=== PATIENT | male | born 1985 | race Caucasian/White ===

== ENCOUNTER 2021-01-05 02:29 | Emergency (ER) | payer OTHER ==
[~2021-01-05] VITALS: Ht 170.2 cm; Wt 74.8 kg
[~2021-01-05 02:29] MED LIST: AZIT250 PO; Acetaminophen325 M1 PO; Bacid1 EACH PO; CLARITIN10 MG PO; DULERA 100 MCG/13 GM INH; FOLI1 PO; FURO40 PO; GEMF600 PO; MAGOXI400 PO; METO50 PO; Norco 5-325 Ta1 EACH PO; Omeprazole20 M1 PO; POTCHL20ER PO; PSYL5.85P PO; TRIHYD253B PO; VITAMIN B-1100 MG PO; ZOLP5 PO
== END 2021-01-05 03:34 | disposition home or self-care (01) ==
LOC: ER 02:29
DX: S62.306A Unspecified fracture of fifth metacarpal bone, right hand, initial encounter for closed fracture (principal); I10 Essential (primary) hypertension; F17.220 Nicotine dependence, chewing tobacco, uncomplicated; W10.9XXA Fall (on) (from) unspecified stairs and steps, initial encounter
CPT/HCPCS: 29125; 73130; 99283-25

== ENCOUNTER 2024-04-05 20:56 | Emergency (ER) | payer OTHER ==
[~2024-04-05] VITALS: Ht 172.7 cm; Wt 72.6 kg
[2024-04-05] MEDS ORDERED: Ondansetron HCl 2 MG / ML 2ML Vial IV PRN (21:25)
[2024-04-05 21:44] LABS: BASOPHILS ABSOLUTE AUTO 0.08 K/mm3 (0.00-0.23); BASOPHILS PERCENT AUTO 1 % (0-2); EOSINOPHILS ABSOLUTE AUTO 0.39 K/mm3 (0.00-0.68); EOSINOPHILS PERCENT AUTO 3 % (0-6); Hematocrit 37.3 % (37.0-53.0); Hemoglobin 12.9 g/dL (13.5-17.5); IMMATURE GRAN ABSOLUTE AUTO 0.07 K/mm3 (0.00-0.10); IMMATURE GRAN PERCENT AUTO 0 % (0-1); LYMPHOCYTES ABSOLUTE AUTO 3.31 K/mm3 (0.84-5.20); LYMPHOCYTES PERCENT AUTO 21 % (21-46); MONOCYTES ABSOLUTE AUTO 1.02 K/mm3 (0.16-1.47); MONOCYTES PERCENT AUTO 7 % (4-13); Mean Corpuscular HGB 31.9 pg (26.0-34.0); Mean Corpuscular HGB Conc 34.6 g/dL (31.5-36.5); Mean Corpuscular Volume 92 fL (80-100); Mean Platelet Volume 9.6 fL (9.1-12.4); NEUTROPHILS ABSOLUTE AUTO 10.93 K/mm3 (1.96-9.15); NEUTROPHILS PERCENT AUTO 69 % (41-73); Platelet Count 309 K/mm3 (150-400); RDW Coefficient Variation 12.3 % (11.7-14.2); RDW Standard Deviation 41.7 fL (35.1-46.3); Red Blood Cell Count 4.05 M/mm3 (4.30-5.90)
[2024-04-05 22:14] LABS: Albumin, Blood 3.8 g/dL (3.4-5.0); Albumin/Globulin Ratio 1.1 (0.8-1.8); Bilirubin, Total 0.2 mg/dL (0.1-1.0); Bun/Creatinine Ratio 9.8 (12.0-20.0); Calcium, Blood 9.7 mg/dL (8.5-10.1); Creatinine, Blood 0.82 mg/dL (0.60-1.20); Globulin, Blood 3.6 g/dL (2.2-4.0); Potassium, Blood 3.7 mmol/L (3.5-5.5); Total Protein, Blood 7.4 g/dL (6.4-8.2)
[2024-04-06] MEDS ORDERED: FentaNYL Citrate 50 MCG/ML 2 ML Injection IV ONE ×2 (01:00→01:35)
[2024-04-06] MEDS ORDERED: Lactated Ringer's 1,000 ML IV SCH (01:05)
[2024-04-06 02:00] VITALS: BP 135/96
[2024-04-06] MEDS ORDERED: ONDA4ODT MM (03:27)
== END 2024-04-06 03:44 | disposition home or self-care (01) ==
LOC: ER 20:56
PROVIDERS: Emergency Medicine
DX: K85.90 Acute pancreatitis without necrosis or infection, unspecified (principal); D72.829 Elevated white blood cell count, unspecified; I10 Essential (primary) hypertension; F43.10 Post-traumatic stress disorder, unspecified; F17.220 Nicotine dependence, chewing tobacco, uncomplicated
CPT/HCPCS: 76705; 80053; 83690; 85025; 96374; 96375; 96376; 99284-25; J2405; J3010; J7120

== ENCOUNTER 2024-11-29 18:23 | Emergency (ER) | payer OTHER ==
[~2024-11-29] VITALS: Ht 170.2 cm; Wt 68.0 kg
[~2024-11-29 18:23] MED LIST changes: +ONDA4ODT MM
[2024-11-29] MEDS ORDERED: Morphine Sulfate 4 MG/1 ML Injection IV ONE (18:40)
[2024-11-29] MEDS ORDERED: Lactated Ringer's 1,000 ML IV SCH (18:40)
[2024-11-29] MEDS ORDERED: Ondansetron HCl 2 MG / ML 2ML Vial IV ONE (18:40)
[2024-11-29 19:05] LABS: BASOPHILS ABSOLUTE AUTO 0.06 K/mm3 (0.00-0.23); BASOPHILS PERCENT AUTO 1 % (0-2); EOSINOPHILS ABSOLUTE AUTO 0.28 K/mm3 (0.00-0.68); EOSINOPHILS PERCENT AUTO 2 % (0-6); Hematocrit 42.7 % (37.0-53.0); IMMATURE GRAN ABSOLUTE AUTO 0.03 K/mm3 (0.00-0.10); IMMATURE GRAN PERCENT AUTO 0 % (0-1); LYMPHOCYTES PERCENT AUTO 26 % (21-46); MONOCYTES ABSOLUTE AUTO 0.85 K/mm3 (0.16-1.47); MONOCYTES PERCENT AUTO 7 % (4-13); Mean Corpuscular HGB 32.1 pg (26.0-34.0); Mean Corpuscular HGB Conc 35.1 g/dL (31.5-36.5); Mean Corpuscular Volume 91 fL (80-100); Mean Platelet Volume 9.2 fL (9.1-12.4); NEUTROPHILS ABSOLUTE AUTO 7.27 K/mm3 (1.96-9.15); NEUTROPHILS PERCENT AUTO 63 % (41-73); Platelet Count 344 K/mm3 (150-400); RDW Standard Deviation 40.3 fL (35.1-46.3); Red Blood Cell Count 4.68 M/mm3 (4.30-5.90); White Blood Cell Count 11.49 K/mm3 (4.00-11.30)
[2024-11-29 19:36] LABS: Albumin, Blood 3.9 g/dL (3.4-5.0); Albumin/Globulin Ratio 1.1 (0.8-1.8); Bilirubin, Total 0.3 mg/dL (0.1-1.0); Calcium, Blood 9.1 mg/dL (8.5-10.1); Creatinine, Blood 0.78 mg/dL (0.60-1.20); Globulin, Blood 3.5 g/dL (2.2-4.0); Potassium, Blood 3.5 mmol/L (3.5-5.5); Total Protein, Blood 7.4 g/dL (6.4-8.2)
[2024-11-29 20:10] LABS: Source, Urine Clean Catch
[2024-11-29 20:16] LABS: Appearance, Urine Clear (Clear); Bilirubin, Urine Neg (Neg); Blood, Urine Neg (Neg); Color, Urine Yellow (P-Yellow); Glucose Qualitative, Urine Neg (Neg); Ketones, Urine Neg (Neg); Leukocyte Esterase, Urine Neg (Neg); Nitrite, Urine Neg (Neg); Protein, Urine Neg (Neg); Urobilinogen, Urine NORM (Normal); pH, Urine 6.5 (5.0-8.0)
[2024-11-29 20:21] VITALS: BP 141/99
[2024-11-29] MEDS ORDERED: OXYC5 PO (21:05)
[2024-11-29] MEDS ORDERED: ONDA4ODT MM (21:05)
[2024-11-29] MEDS ORDERED: Morphine Sulfate 10 MG/ML 1MLSYR IV ONE (21:05)
== END 2024-11-29 22:09 | disposition home or self-care (01) ==
LOC: ER 18:23
PROVIDERS: Emergency Medicine
DX: K85.90 Acute pancreatitis without necrosis or infection, unspecified (principal); E86.0 Dehydration; D72.829 Elevated white blood cell count, unspecified; I10 Essential (primary) hypertension; E78.1 Pure hyperglyceridemia; F17.220 Nicotine dependence, chewing tobacco, uncomplicated; Z79.899 Other long term (current) drug therapy; Z59.89 Other problems related to housing and economic circumstances
CPT/HCPCS: 76705; 80053; 81003; 83605; 83690; 85025; 93005; 93010; 96361; 96374; 96375; 96376; 99284-25; J2270; J2405; J7120

== ENCOUNTER 2024-12-18 17:34 | Emergency (ER) | payer OTHER ==
[~2024-12-18] VITALS: Ht 170.2 cm; Wt 68.0 kg
[~2024-12-18 17:34] MED LIST changes: +OXYC5 PO
[2024-12-18 17:42] VITALS: BP 132/105
[2024-12-18 18:03] LABS: BASOPHILS ABSOLUTE AUTO 0.07 K/mm3 (0.00-0.23); BASOPHILS PERCENT AUTO 1 % (0-2); EOSINOPHILS ABSOLUTE AUTO 0.37 K/mm3 (0.00-0.68); EOSINOPHILS PERCENT AUTO 3 % (0-6); Hematocrit 43.6 % (37.0-53.0); Hemoglobin 15.1 g/dL (13.5-17.5); IMMATURE GRAN ABSOLUTE AUTO 0.03 K/mm3 (0.00-0.10); IMMATURE GRAN PERCENT AUTO 0 % (0-1); LYMPHOCYTES ABSOLUTE AUTO 3.73 K/mm3 (0.84-5.20); LYMPHOCYTES PERCENT AUTO 26 % (21-46); MONOCYTES ABSOLUTE AUTO 0.89 K/mm3 (0.16-1.47); MONOCYTES PERCENT AUTO 6 % (4-13); Mean Corpuscular HGB 31.7 pg (26.0-34.0); Mean Corpuscular HGB Conc 34.6 g/dL (31.5-36.5); Mean Corpuscular Volume 91 fL (80-100); Mean Platelet Volume 9.5 fL (9.1-12.4); NEUTROPHILS ABSOLUTE AUTO 9.31 K/mm3 (1.96-9.15); NEUTROPHILS PERCENT AUTO 65 % (41-73); Platelet Count 380 K/mm3 (150-400); RDW Coefficient Variation 12.1 % (11.7-14.2); RDW Standard Deviation 40.7 fL (35.1-46.3); Red Blood Cell Count 4.77 M/mm3 (4.30-5.90)
[2024-12-18 18:24] LABS: Albumin, Blood 4.3 g/dL (3.4-5.0); Albumin/Globulin Ratio 1.2 (0.8-1.8); Bilirubin, Total 0.3 mg/dL (0.1-1.0); Bun/Creatinine Ratio 11.6 (12.0-20.0); Calcium, Blood 9.9 mg/dL (8.5-10.1); Creatinine, Blood 0.95 mg/dL (0.60-1.20); Globulin, Blood 3.5 g/dL (2.2-4.0); Potassium, Blood 3.6 mmol/L (3.5-5.5); Total Protein, Blood 7.8 g/dL (6.4-8.2)
[2024-12-18] MEDS ORDERED: HYDROmorphone HCl/Pf 1MG SYR IV ONE ×2 (20:15→21:45)
[2024-12-18] MEDS ORDERED: Ondansetron HCl 2 MG / ML 2ML Vial IV ONE (20:50)
[2024-12-18] MEDS ORDERED: Mag Hydrox/AL Hydrox/Simeth 30 ML UDC PO ONE (21:20)
[2024-12-18] MEDS ORDERED: Lidocaine 2% Viscous Soln 15 ML UDC PO ONE (21:20)
[2024-12-18] MEDS ORDERED: RX Prepack 6 Tabs Oxycodone 5mg UD ONE (22:00)
== END 2024-12-18 22:18 | disposition home or self-care (01) ==
LOC: ER 17:34
PROVIDERS: Student in an Organized Health Care Education/Training Program
DX: R10.13 Epigastric pain (principal); K86.1 Other chronic pancreatitis; K86.3 Pseudocyst of pancreas; K42.9 Umbilical hernia without obstruction or gangrene; I10 Essential (primary) hypertension; F17.220 Nicotine dependence, chewing tobacco, uncomplicated
CPT/HCPCS: 74177; 80053; 83690; 84484; 85025; 96374-59; 96375; 96376; 99284-25; A9270; J1171; J2405; Q9967

== ENCOUNTER 2025-03-09 06:21 | Inpatient (IN) | payer OTHER ==
[~2025-03-09] VITALS: Ht 170.2 cm; Wt 58.7 kg
[2025-03-09] MEDS ORDERED: Prochlorperazine Edisylate 10 mg Vial IV ONE (06:50)
[2025-03-09] MEDS ORDERED: HYDROmorphone HCl/Pf 1MG SYR IV ONE ×2 (06:55→09:20)
[2025-03-09] MEDS ORDERED: D5W-NS 500 ML IV SCH (06:55)
[2025-03-09 07:04] LABS: BASOPHILS ABSOLUTE AUTO 0.05 K/mm3 (0.00-0.23); BASOPHILS PERCENT AUTO 0 % (0-2); EOSINOPHILS ABSOLUTE AUTO 0.14 K/mm3 (0.00-0.68); EOSINOPHILS PERCENT AUTO 1 % (0-6); Hematocrit 43.7 % (37.0-53.0); Hemoglobin 15.3 g/dL (13.5-17.5); IMMATURE GRAN ABSOLUTE AUTO 0.05 K/mm3 (0.00-0.10); IMMATURE GRAN PERCENT AUTO 0 % (0-1); LYMPHOCYTES ABSOLUTE AUTO 1.93 K/mm3 (0.84-5.20); LYMPHOCYTES PERCENT AUTO 15 % (21-46); MONOCYTES ABSOLUTE AUTO 0.71 K/mm3 (0.16-1.47); MONOCYTES PERCENT AUTO 6 % (4-13); Mean Corpuscular HGB Conc 35.0 g/dL (31.5-36.5); Mean Corpuscular Volume 91 fL (80-100); NEUTROPHILS ABSOLUTE AUTO 9.90 K/mm3 (1.96-9.15); NEUTROPHILS PERCENT AUTO 77 % (41-73); NRBC ABSOLUTE 0.00 K/mm3 (0.00-0.02); NRBC Auto 0.0 /100 WBC (0.0-0.2); Platelet Count 399 K/mm3 (150-400); RDW Coefficient Variation 13.2 % (11.7-14.2); RDW Standard Deviation 44.6 fL (35.1-46.3)
[2025-03-09 07:23] LABS: Alanine Aminotransfer (ALT/SGP 41.0 U/L (12-78); Albumin, Blood 4.1 g/dL (3.4-5.0); Albumin/Globulin Ratio 1.3 (0.8-1.8); Anion Gap 11.0 mmol/L (3-11); Aspartate Aminotrans (AST/SGOT 33.0 U/L (12-37); Bilirubin, Direct 0.1 mg/dL (0.0-0.3); Bilirubin, Indirect 0.4 mg/dL (0.1-0.7); Bilirubin, Total 0.5 mg/dL (0.1-1.0); Blood Urea Nitrogen 15.0 mg/dL (8-24); CO2, Blood 28.0 mmol/L (21-32); Calcium, Blood 8.8 mg/dL (8.5-10.1); Chloride, Blood 99.0 mmol/L (98-108); Creatinine, Blood 0.8 mg/dL (0.60-1.20); Globulin, Blood 3.1 g/dL (2.2-4.0); Glucose, Blood 123.0 mg/dL (70-99); Potassium, Blood 3.0 mmol/L (3.5-5.5); Sodium, Blood 135.0 mmol/L (136-145); Total Protein, Blood 7.2 g/dL (6.4-8.2)
[2025-03-09 08:52] LABS: Source, Urine Clean Catch
[2025-03-09 08:56] LABS: Bilirubin, Urine Neg (Neg); Color, Urine Yellow (P-Yellow); Glucose Qualitative, Urine Neg (Neg); Ketones, Urine 1+ (Neg); Leukocyte Esterase, Urine Neg (Neg); Protein, Urine 2+ (Neg); Specific Gravity, Urine 1.010 (1.003-1.022); Urobilinogen, Urine NORM (Normal)
[2025-03-09] MEDS ORDERED: Enoxaparin 60 MG/0.6 ML SYR SC SCH (09:00)
[2025-03-09 09:02] LABS: Red Blood Cells, Urine Not Seen /hpf (0-2); White Blood Cells, Urine Not Seen /hpf (0-5)
[2025-03-09] MEDS ORDERED: Potassium Chl 20MEQ/Water100ML 100 ML IV STA (10:24)
[2025-03-09] MEDS ORDERED: HYDROmorphone HCl/Pf 1MG SYR IV PRN (10:25)
[2025-03-09] MEDS ORDERED: Ondansetron HCl 2 MG / ML 2ML Vial IV PRN (10:25)
[2025-03-09] MEDS ORDERED: NS 1,000 ML IV ONE (10:34)
[2025-03-09] MEDS ORDERED: Amylase/Lipase/Protease DR Cap 12,000 PO SCH (12:30)
[2025-03-09] MEDS ORDERED: Prochlorperazine Edisylate 10 mg Vial IV SCH (16:00)
--- NOTE | 2025-03-09 17:15 | NUR ---
PT ADMITTED TO ROOM 358 FROM ER.
[2025-03-09 17:19] VITALS: BP 110/73
[2025-03-09 19:12] VITALS: BP 120/82
[2025-03-10 01:55] VITALS: BP 99/66
--- NOTE | 2025-03-10 04:01 | NUR ---
SHIFT SUMMARY NOC PT A/O X 4.PLEASANT AND COOPERATIVE WITH CARE VSS. NO ACUTE CHANGES TO REPORT. PT PAIN AND INTERMITTENT NAUSUA BEING MANAGEG PER EMAR. LR INFUSING @ 150 ML/HR. PT TOLERATING CLEAR LIQUID DIET. PT TOOK SHOWER AT BEGINNING OF SHIFT. PT CURRENTLY RESTING WITH BED IN LOWEST POSITION, AND CALL LIGHT WITHIN REACH.
[2025-03-10 05:29] LABS: Magnesium, Blood 2.2 mg/dL (1.6-2.4)
[2025-03-10 05:32] LABS: Alanine Aminotransfer (ALT/SGP 27.0 U/L (12-78); Albumin, Blood 2.8 g/dL (3.4-5.0); Albumin/Globulin Ratio 1.2 (0.8-1.8); Anion Gap 6.0 mmol/L (3-11); Aspartate Aminotrans (AST/SGOT 23.0 U/L (12-37); Bilirubin, Total 0.4 mg/dL (0.1-1.0); Blood Urea Nitrogen 7.0 mg/dL (8-24); CO2, Blood 29.0 mmol/L (21-32); Calcium, Blood 8.1 mg/dL (8.5-10.1); Chloride, Blood 109.0 mmol/L (98-108); Creatinine, Blood 0.68 mg/dL (0.60-1.20); Globulin, Blood 2.4 g/dL (2.2-4.0); Glucose, Blood 83.0 mg/dL (70-99); Potassium, Blood 4.0 mmol/L (3.5-5.5); Sodium, Blood 140.0 mmol/L (136-145)
[2025-03-10 05:36] LABS: Total Protein, Blood 5.2 g/dL (6.4-8.2)
[2025-03-10 07:48] VITALS: BP 90/61
[2025-03-10 14:59] VITALS: BP 109/69
--- NOTE | 2025-03-10 16:46 | NUR ---
SHIFT SUMMARY: PATIENT ABLE TO ADVANCE DIET TOLERATED TODAY. WILL ATTEMPT A REGULAR DIET FOR DINNER; TOLERATED FULL LIQUID FOR LUNCH. MEDICATING FOR NAUSEA AND PAIN NEEDED. PATIENT TOLERATING ORAL MEDICATIONS. LR D/C'D. PATIENT IN BED, ALERT, NO SIGNS OR SYMPTOMS OF DISTRESS, PLAN OF CARE ONGOING. PLAN IS TO D/C 03/11/25.
[2025-03-10 20:03] VITALS: BP 112/78
[2025-03-11 04:35] VITALS: BP 122/81
--- NOTE | 2025-03-11 05:19 | NUR ---
PT A&O X4, VS WNL, UOP WNL, PT MEDICATED FOR PAIN WITH PO DILAUDID, AND REMAINS ON ROUTINE ANTINAUSEA MEDS. INDEPENDENT WITH MOBILITY AND ADL'S. PLAN TO D/C HOME WITH REFERAL TO [facility].
[2025-03-11 07:21] VITALS: BP 115/84
[2025-03-11 08:44] VITALS: BP 144/91
[2025-03-11] MEDS ORDERED: DiphenhydrAMINE HCl 50 MG/ML 1ML Vial ONE (08:46)
[2025-03-11] MEDS ORDERED: LORazepam 2 MG/ML 1ML Injection IV ONE (08:50)
[2025-03-11] MEDS ORDERED: DiphenhydrAMINE HCl 50 MG/ML 1ML Vial IV ONE (08:50)
[2025-03-11] MEDS ORDERED: LORazepam 2 MG/ML 1ML Injection ONE (08:51)
[2025-03-11] MEDS ORDERED: DiphenhydrAMINE HCl 50 MG/ML 1ML Vial IV PRN (08:55)
--- NOTE | 2025-03-11 09:11 | NUR ---
RAPID RESPONSE CALLED ON PATIENT DUE TO SUDDEN TONGUE SWELLING AND PATIENT REPORTING; SWELLING, CRAMPING, DIFFICULTY BREATHING, PANIC/ANXIETY/PTSD. CHARGE, NURSING SUP, RAPID RESPONSE RN, PRIMARY RN, AND DR. FRYE AT BEDSIDE. PREFORMED RAPID RESPONSE, ORDERS PLACED, MEDICATIONS GIVEN PER EMAR. PATIENT RECOVERED WITH TREATMENT. NO LONGER WEARING OXYGEN AT THIS TIME, CONTINUE BI OX IN PLACE, PATIENT REPORTS FEELING BETTER, TONGUE SWELLING RESOLVED, PATIENT DROWSY FROM MEDICATIONS. AT BEDSIDE. ADVISED TO CALL IMMEDIATELY WITH ANY SYMPTOMS. ORDERS PLACED FOR PATIENT IF REACTION REOCCURS.
[2025-03-11] MEDS ORDERED: CREON DR 12,001 EACH PO (12:33)
[2025-03-11] MEDS ORDERED: XARELTO20 MG PO (12:33)
--- NOTE | 2025-03-11 12:50 | NUR ---
DISCHARGE NOTE: WENT OVER DISCHARGE WITH THE PATIENT AND HIS . PATIENT'S IV WAS REMOVED, HE GOT DRESSED AND COLLECTED BELONGINGS. PATIENT WALKED OUT OF UNIT WITH . PATIENT FELT GOOD AND WAS READY TO LEAVE. NO SIGNS OR SYMPTOMS OF DISTRESS WITH DISCHARGE.
== END 2025-03-11 12:50 | disposition home or self-care (01) | DRG 439 ==
LOC: ER 06:21 → ERHOLD 10:23 → MEDS 10:23
PROVIDERS: Student in an Organized Health Care Education/Training Program; ADMIT Internal Medicine
DX: K85.20 Alcohol induced acute pancreatitis without necrosis or infection (principal); K86.3 Pseudocyst of pancreas; D73.5 Infarction of spleen; F17.220 Nicotine dependence, chewing tobacco, uncomplicated; I10 Essential (primary) hypertension; E87.6 Hypokalemia; F43.10 Post-traumatic stress disorder, unspecified; E78.1 Pure hyperglyceridemia; F10.21 Alcohol dependence, in remission; K86.0 Alcohol-induced chronic pancreatitis; Z88.8 Allergy status to other drugs, medicaments and biological substances; Z87.820 Personal history of traumatic brain injury; Z89.421 Acquired absence of other right toe(s)
CPT/HCPCS: 36415; 74177; 80048; 80053; 80076; 81001; 83605; 83690; 83735; 85025; 93005; 93010; 94760; 94762; 96374-59; 96375; 96376; 99285-25; A9270; J0780; J1171; J1200; J2060; J3480; J7030; J7042; J7120; Q9967

== ENCOUNTER 2025-03-14 17:55 | Inpatient (IN) | payer OTHER ==
[~2025-03-14] VITALS: Ht 170.2 cm; Wt 59.0 kg
[~2025-03-14 17:55] MED LIST changes: +CREON DR 12,001 EACH PO; +XARELTO20 MG PO
[2025-03-14] MEDS ORDERED: NS 1,000 ML IV SCH ×2 (18:10→21:50)
[2025-03-14] MEDS ORDERED: HYDROmorphone HCl/Pf 1MG SYR IV ONE ×2 (18:10→23:10)
[2025-03-14] MEDS ORDERED: Ondansetron HCl 2 MG / ML 2ML Vial IV ONE ×2 (18:15→19:40)
[2025-03-14 18:37] LABS: BASOPHILS ABSOLUTE AUTO 0.04 K/mm3 (0.00-0.23); BASOPHILS PERCENT AUTO 0 % (0-2); EOSINOPHILS ABSOLUTE AUTO 0.07 K/mm3 (0.00-0.68); EOSINOPHILS PERCENT AUTO 1 % (0-6); Hematocrit 38.6 % (37.0-53.0); Hemoglobin 13.3 g/dL (13.5-17.5); IMMATURE GRAN ABSOLUTE AUTO 0.04 K/mm3 (0.00-0.10); IMMATURE GRAN PERCENT AUTO 0 % (0-1); LYMPHOCYTES ABSOLUTE AUTO 1.75 K/mm3 (0.84-5.20); LYMPHOCYTES PERCENT AUTO 16 % (21-46); MONOCYTES ABSOLUTE AUTO 0.78 K/mm3 (0.16-1.47); MONOCYTES PERCENT AUTO 7 % (4-13); Mean Corpuscular HGB Conc 34.5 g/dL (31.5-36.5); Mean Corpuscular Volume 93 fL (80-100); NEUTROPHILS ABSOLUTE AUTO 7.99 K/mm3 (1.96-9.15); NEUTROPHILS PERCENT AUTO 75 % (41-73); NRBC ABSOLUTE 0.00 K/mm3 (0.00-0.02); NRBC Auto 0.0 /100 WBC (0.0-0.2); Platelet Count 347 K/mm3 (150-400); RDW Coefficient Variation 13.5 % (11.7-14.2); RDW Standard Deviation 46.5 fL (35.1-46.3)
[2025-03-14 18:53] LABS: Alanine Aminotransfer (ALT/SGP 50.0 U/L (12-78); Albumin, Blood 4.1 g/dL (3.4-5.0); Albumin/Globulin Ratio 1.3 (0.8-1.8); Anion Gap 9.0 mmol/L (3-11); Aspartate Aminotrans (AST/SGOT 32.0 U/L (12-37); Bilirubin, Total 0.5 mg/dL (0.1-1.0); Blood Urea Nitrogen 19.0 mg/dL (8-24); CO2, Blood 36.0 mmol/L (21-32); Calcium, Blood 9.4 mg/dL (8.5-10.1); Chloride, Blood 99.0 mmol/L (98-108); Creatinine, Blood 0.89 mg/dL (0.60-1.20); Globulin, Blood 3.2 g/dL (2.2-4.0); Glucose, Blood 131.0 mg/dL (70-99); Potassium, Blood 3.1 mmol/L (3.5-5.5); Sodium, Blood 141.0 mmol/L (136-145); Total Protein, Blood 7.3 g/dL (6.4-8.2)
[2025-03-14] MEDS ORDERED: Potassium Chl 20MEQ/Water100ML 100 ML IV SCH (21:50)
[2025-03-14] MEDS ORDERED: FentaNYL Citrate 50 MCG/ML 2 ML Injection IV PRN (23:30)
[2025-03-14] MEDS ORDERED: Ondansetron HCl 2 MG / ML 2ML Vial IV PRN (23:30)
[2025-03-14] MEDS ORDERED: NS 1,000 ML IV ONE (23:30)
[2025-03-14] MEDS ORDERED: HYDROmorphone HCl/Pf 1MG SYR IV PRN (23:30)
--- NOTE | 2025-03-14 23:41 | NUR ---
TOOK REPORT FROM ED FEDERICA HOANG @ [id number].
[2025-03-14 23:53] LABS: Magnesium, Blood 2.3 mg/dL (1.6-2.4); Phosphorus, Blood 4.8 mg/dL (2.5-4.9)
[2025-03-14 23:58] VITALS: BP 105/75
[2025-03-15] MEDS ORDERED: Ondansetron HCl 2 MG / ML 2ML Vial IV ONE (00:30)
[2025-03-15 01:36] LABS: BASOPHILS ABSOLUTE AUTO 0.05 K/mm3 (0.00-0.23); BASOPHILS PERCENT AUTO 0 % (0-2); EOSINOPHILS ABSOLUTE AUTO 0.12 K/mm3 (0.00-0.68); EOSINOPHILS PERCENT AUTO 1 % (0-6); Hematocrit 32.4 % (37.0-53.0); Hemoglobin 11.1 g/dL (13.5-17.5); IMMATURE GRAN ABSOLUTE AUTO 0.09 K/mm3 (0.00-0.10); IMMATURE GRAN PERCENT AUTO 1 % (0-1); LYMPHOCYTES ABSOLUTE AUTO 3.78 K/mm3 (0.84-5.20); LYMPHOCYTES PERCENT AUTO 31 % (21-46); MONOCYTES ABSOLUTE AUTO 1.15 K/mm3 (0.16-1.47); MONOCYTES PERCENT AUTO 9 % (4-13); Mean Corpuscular HGB Conc 34.3 g/dL (31.5-36.5); Mean Corpuscular Volume 95 fL (80-100); NEUTROPHILS ABSOLUTE AUTO 7.08 K/mm3 (1.96-9.15); NEUTROPHILS PERCENT AUTO 58 % (41-73); NRBC ABSOLUTE 0.00 K/mm3 (0.00-0.02); NRBC Auto 0.0 /100 WBC (0.0-0.2); Platelet Count 315 K/mm3 (150-400); RDW Coefficient Variation 13.7 % (11.7-14.2); RDW Standard Deviation 48.0 fL (35.1-46.3)
[2025-03-15 01:52] LABS: Alanine Aminotransfer (ALT/SGP 38 U/L (12-78); Albumin, Blood 3.4 g/dL (3.4-5.0); Albumin/Globulin Ratio 1.4 (0.8-1.8); Anion Gap 11 mmol/L (3-11); Aspartate Aminotrans (AST/SGOT 25 U/L (12-37); Bilirubin, Total 0.4 mg/dL (0.1-1.0); Blood Urea Nitrogen 17 mg/dL (8-24); CO2, Blood 30 mmol/L (21-32); Calcium, Blood 8.1 mg/dL (8.5-10.1); Chloride, Blood 101 mmol/L (98-108); Creatinine, Blood 0.74 mg/dL (0.60-1.20); Globulin, Blood 2.5 g/dL (2.2-4.0); Glucose, Blood 95 mg/dL (70-99); Magnesium, Blood 2.0 mg/dL (1.6-2.4); Phosphorus, Blood 3.8 mg/dL (2.5-4.9); Potassium, Blood 3.3 mmol/L (3.5-5.5); Sodium, Blood 139 mmol/L (136-145); Total Protein, Blood 5.9 g/dL (6.4-8.2)
[2025-03-15 02:26] VITALS: BP 98/67
[2025-03-15] MEDS ORDERED: HYDROmorphone HCl/Pf 1MG SYR IV PRN (02:40)
[2025-03-15 03:16] LABS: CHOL/HDL RATIO 3.4; Cholesterol 104 mg/dL (50-200); HDL Cholesterol 31 mg/dL (>39); LDL/HDL RATIO 1.9; Low Density Lipoprotein Chol 59 mg/dL (0-110); Triglycerides 68 mg/dL (30-160); Very Low Density Lipoprot Chol 13 mg/dL (6-32)
--- NOTE | 2025-03-15 04:56 | NUR ---
SHIFT SUMMARY NOC PT A/O X 4. PLEASANT AND COOPERATIVE WITH CARE. BP SOFT. IVF CHANGED FROM NS @ 100 ML/HR TO LR @ 200 ML/HR, DUE TO NPO STATUS AND TO KEEP BP UP BECAUSE PT RECEIVING DILAUDID IV FOR PAIN. PT NAUSEA BEING MANAGED PER EMAR. PT ON TELE SINUS RHYTHM IN 60'S. PT POTASSIUM 3.3 AFTER RECEIVING 40 MEQ IV KCL, ADDITIONAL 40 MEQ ORDERED AND IS INFUSING. PT DISCHARGED FROM HOSPITAL ON THURSDAY, BUT WAS UNABLE TO GET PRESCRIPTION FOR CREON FILLED AT THE [facility] DUE TO LABOR DAY WEEKEND. PT CURRENTLY RESTING WITH BED IN LOWEST POSITION, AND CALL LIGHT WITHIN REACH.
[2025-03-15 07:21] VITALS: BP 101/61
[2025-03-15 09:38] LABS: Anion Gap 6.0 mmol/L (3-11); Blood Urea Nitrogen 14.0 mg/dL (8-24); CO2, Blood 30.0 mmol/L (21-32); Calcium, Blood 8.0 mg/dL (8.5-10.1); Chloride, Blood 106.0 mmol/L (98-108); Creatinine, Blood 0.76 mg/dL (0.60-1.20); Glucose, Blood 79.0 mg/dL (70-99); Magnesium, Blood 2.1 mg/dL (1.6-2.4); Phosphorus, Blood 3.0 mg/dL (2.5-4.9); Potassium, Blood 3.8 mmol/L (3.5-5.5); Sodium, Blood 138.0 mmol/L (136-145)
[2025-03-15] MEDS ORDERED: Amylase/Lipase/Protease DR Cap 12,000 PO SCH (10:08)
[2025-03-15] MEDS ORDERED: Metoclopramide HCl 5MG / ML 2ML Vial IV PRN (10:45)
[2025-03-15 16:51] VITALS: BP 102/76
--- NOTE | 2025-03-15 18:47 | NUR ---
SUMMARY- PT A/O X4. INDEPENDANT IN ROOM. STAYED IN BED MOST OF THE DAY RELATED TO PAIN AND UNCOMFORTABLE ABD. TIGHT AND PAINFUL ENTIRE UPPER ABD. MEDICATED ROUTINELY APPROX Q2 WITH DILAUDID 1MG, ALTERNATED ZOFRAN WITH REGLAN. STARTED ON CLEARS, ATTEMPTED TO ADVANCE, TOOK A FEW BITES OF RICE AND CHICKEN AND IMMEDIATE NAUSEA, STOPPED SOLIDS. CONT T/O THE DAY TO TAKE IN SIPS OF CLEARS. AGAIN TRIED RICE AND CHICKEN AT DINNER AND COULD NOT TOLERATE. PT HAS LR RUNNING AT 200ML/HR, STATED HE HAD NO VOID ALL DAY, ATTEMPTED AT 1830 AND VOIDED 75ML MED CONCENTRATED URINE, BLADDER SCAN POST VOID WAS 9ML. WILL REPORT ALL TO NOC RN
[2025-03-15 20:37] VITALS: BP 111/68
[2025-03-16 04:22] VITALS: BP 111/82
--- NOTE | 2025-03-16 05:43 | NUR ---
SHIFT SUMMARY: Pt is admitted for acute pancreatitis and is a full code. Is alert able to make needs known. ADLs have been IND. pain has been managed with PRN medications. Stated he has nausea and was given PRN medications to help. Telly noted sinus carroll 40s to 60s through shift. With no events.
[2025-03-16 06:30] LABS: BASOPHILS ABSOLUTE AUTO 0.04 K/mm3 (0.00-0.23); BASOPHILS PERCENT AUTO 1 % (0-2); EOSINOPHILS ABSOLUTE AUTO 0.17 K/mm3 (0.00-0.68); EOSINOPHILS PERCENT AUTO 2 % (0-6); Hematocrit 32.9 % (37.0-53.0); Hemoglobin 11.0 g/dL (13.5-17.5); IMMATURE GRAN ABSOLUTE AUTO 0.03 K/mm3 (0.00-0.10); IMMATURE GRAN PERCENT AUTO 0 % (0-1); LYMPHOCYTES ABSOLUTE AUTO 1.98 K/mm3 (0.84-5.20); LYMPHOCYTES PERCENT AUTO 24 % (21-46); MONOCYTES ABSOLUTE AUTO 0.54 K/mm3 (0.16-1.47); MONOCYTES PERCENT AUTO 7 % (4-13); Mean Corpuscular HGB Conc 33.4 g/dL (31.5-36.5); Mean Corpuscular Volume 98 fL (80-100); NEUTROPHILS ABSOLUTE AUTO 5.44 K/mm3 (1.96-9.15); NEUTROPHILS PERCENT AUTO 66 % (41-73); NRBC ABSOLUTE 0.00 K/mm3 (0.00-0.02); NRBC Auto 0.0 /100 WBC (0.0-0.2); Platelet Count 234 K/mm3 (150-400); RDW Coefficient Variation 13.3 % (11.7-14.2); RDW Standard Deviation 48.2 fL (35.1-46.3)
[2025-03-16 06:58] LABS: Anion Gap 6.0 mmol/L (3-11); Blood Urea Nitrogen 8.0 mg/dL (8-24); CO2, Blood 27.0 mmol/L (21-32); Calcium, Blood 7.8 mg/dL (8.5-10.1); Chloride, Blood 108.0 mmol/L (98-108); Creatinine, Blood 0.71 mg/dL (0.60-1.20); Glucose, Blood 89.0 mg/dL (70-99); Potassium, Blood 4.1 mmol/L (3.5-5.5); Sodium, Blood 137.0 mmol/L (136-145)
[2025-03-16 07:49] VITALS: BP 111/82
[2025-03-16 11:37] VITALS: BP 120/83
[2025-03-16] MEDS ORDERED: Ondansetron HCl 2 MG / ML 2ML Vial IV PRN (12:40)
[2025-03-16 16:08] VITALS: BP 110/71
--- NOTE | 2025-03-16 18:10 | NUR ---
SHIFT SUMMARY PATIENT A/OX4, ABLE TO MAKE NEEDS KNOWN. PLEASANT AND COOOPERATIVE WITH CARE. COMPLAINING OF PAIN TO UPPER ABDOMEN 6-9/10 THROUGHOUT THE SHIFT. PRN DILAUDID ADMINISTERED PER MAR. PATIENT ALSO COMPLAINING OF NAUSEA, PRN REGLAN AND ZOFRAN ADMINISTERED THROUGHOUT SHIFT, MD NOTIFIED THIS AFTERNOON OF CONTINUED NAUSEA DESPITE MEDICATION REGIMEN FOR NAUSEA AND PR4N SOFRAN INCREASED TO Q4 HOURS. TLEMETRY IN PLACE, SINUS ABDOULAYE, NO EVENTS NOTED, QTC 0.34 PER TELEMETRY.PATIENT WITH REGULAR DIET, BUT NOT [id number] INTAKE. GIVEN CLEAR LIQUID FLUIDS/FOOD AND ALSO DID NOT TOLERATE WELL. ONE EPISODE OF EMESIS THIS EVENING AFTER DRINKING ENSURE CLEAR. HARDSCRIPT PRESCRIPTIONS GIVEN TO PATIENT'S SPOUSE, ELSY, THIS MORNING TO ENSURE [facility] AB[facility] TO PROVID[facility] WITH [facility]ICATIONS. [facility] CALLED TO [facility]M ORDERS. PATIENT'S SPOUSE AND FRIEND AT BEDISDE INTERMITTENTLY THROUGHOUT SHIFT. PATIENT'S SPOUSE STATES THAT [facility] TO [facility]. NO OTHER CONCERNS, WILL CONTINUE TO MONITOR.
[2025-03-16 19:13] VITALS: BP 127/82
[2025-03-16 23:44] VITALS: BP 114/78
[2025-03-17 04:56] VITALS: BP 115/79
[2025-03-17 05:34] LABS: BASOPHILS ABSOLUTE AUTO 0.03 K/mm3 (0.00-0.23); BASOPHILS PERCENT AUTO 0 % (0-2); EOSINOPHILS ABSOLUTE AUTO 0.18 K/mm3 (0.00-0.68); EOSINOPHILS PERCENT AUTO 2 % (0-6); Hematocrit 32.7 % (37.0-53.0); Hemoglobin 11.0 g/dL (13.5-17.5); IMMATURE GRAN ABSOLUTE AUTO 0.03 K/mm3 (0.00-0.10); IMMATURE GRAN PERCENT AUTO 0 % (0-1); LYMPHOCYTES ABSOLUTE AUTO 2.36 K/mm3 (0.84-5.20); LYMPHOCYTES PERCENT AUTO 32 % (21-46); MONOCYTES ABSOLUTE AUTO 0.70 K/mm3 (0.16-1.47); MONOCYTES PERCENT AUTO 9 % (4-13); Mean Corpuscular HGB Conc 33.6 g/dL (31.5-36.5); Mean Corpuscular Volume 95 fL (80-100); NEUTROPHILS ABSOLUTE AUTO 4.18 K/mm3 (1.96-9.15); NEUTROPHILS PERCENT AUTO 56 % (41-73); NRBC ABSOLUTE 0.00 K/mm3 (0.00-0.02); NRBC Auto 0.0 /100 WBC (0.0-0.2); Platelet Count 238 K/mm3 (150-400); RDW Coefficient Variation 13.1 % (11.7-14.2); RDW Standard Deviation 45.2 fL (35.1-46.3)
--- NOTE | 2025-03-17 06:03 | NUR ---
SHIFT SUMMARY: Pt is admitted for acute pancreatitis and is a full code. Is alert able to make needs known. ADLs have been IND. pain has been managed with PRN medications. Stated he has nausea and was given PRN medications to help. Telly noted sinus carroll 40s to 60s through shift. With no events. Had emesis x1 that was out 300ml and clear. PRN antiemetics have been given about every 4h due to nausea. LR at 200 has been running into left forearm IV. dressing CDI.
[2025-03-17 06:05] LABS: Anion Gap 5.0 mmol/L (3-11); Blood Urea Nitrogen 4.0 mg/dL (8-24); CO2, Blood 32.0 mmol/L (21-32); Calcium, Blood 7.8 mg/dL (8.5-10.1); Chloride, Blood 105.0 mmol/L (98-108); Creatinine, Blood 0.73 mg/dL (0.60-1.20); Glucose, Blood 82.0 mg/dL (70-99); Potassium, Blood 3.6 mmol/L (3.5-5.5); Sodium, Blood 138.0 mmol/L (136-145)
[2025-03-17 07:26] VITALS: BP 126/83
[2025-03-17] MEDS ORDERED: Amylase/Lipase/Protease DR Cap 12,000 PO SCH (12:30)
[2025-03-17 15:25] VITALS: BP 135/85
--- NOTE | 2025-03-17 18:10 | NUR ---
SHIFT SUMMARY PATIENT A/OX4, ABLE TO MAKE NEEDS KNOWN. PLEASANT AND COOPERATIVE WITH CARE. INDEPENDENT IN ROOM. IV FLUIDS RUNNING PER SEP. IV PAIN MEDICATIONS AND NAUSEA MEDICATION TRANSITIONED TO PO THIS SHIFT AND PATIENT HAS TOLERATED WELL. ALSO HAD ONE TIME ORDER OF ATIVAN TO RELIEVE NAUSEA. HE ALSO HAS INCREASED APPETITE AND INTAKE COMPARED TO YESTERDAY. PATIENT'S SPOUSE AT BEDSIDE INTERMITTENTLY THROUGHOUT THE SHIFT. PATIENT PROVIDED WITH HARDSCRIPTS FOR PO DILAUDID AND ZOFRAN IN ORDER FOR THE [facility] TODAY PRIOR TO ANTICIPATED DISCHARGE TOMORROW. NO OTHER CONCERNS AT THIS TIME, WILL CONTINUE TO MONITOR.
[2025-03-17 20:13] VITALS: BP 133/85
[2025-03-17 20:14] VITALS: BP 133/85
[2025-03-17 23:41] VITALS: BP 145/92
[2025-03-18 04:30] VITALS: BP 135/87
--- NOTE | 2025-03-18 06:33 | NUR ---
NO ACUTE CHANGES DURING SHIFT. PATIENT ALERT AND ORIENTED X4, ABLE TO MAKE NEEDS KNOWN. PATIENT IS UP INDEPENDENTLY IN THE ROOM AND ABLE TO TURN SELF IN BED. PATIEN IS ON LR AT 200 ML/H. PO DILAUDID GIVEN FOR PAIN AND ZOFRAN AND REGLAN GIVEN FOR NAUSEA. PATIENT IS ON TELE-RUNNING NSR/SB. BED IS IN LOW POSITION WITH WHEELS LOCKED. CALL LIGHT WITHIN REACH.
[2025-03-18 06:35] LABS: BASOPHILS ABSOLUTE AUTO 0.05 K/mm3 (0.00-0.23); BASOPHILS PERCENT AUTO 1 % (0-2); EOSINOPHILS ABSOLUTE AUTO 0.21 K/mm3 (0.00-0.68); EOSINOPHILS PERCENT AUTO 3 % (0-6); Hematocrit 34.9 % (37.0-53.0); Hemoglobin 11.8 g/dL (13.5-17.5); IMMATURE GRAN ABSOLUTE AUTO 0.02 K/mm3 (0.00-0.10); IMMATURE GRAN PERCENT AUTO 0 % (0-1); LYMPHOCYTES ABSOLUTE AUTO 2.04 K/mm3 (0.84-5.20); LYMPHOCYTES PERCENT AUTO 27 % (21-46); MONOCYTES ABSOLUTE AUTO 0.51 K/mm3 (0.16-1.47); MONOCYTES PERCENT AUTO 7 % (4-13); Mean Corpuscular HGB Conc 33.8 g/dL (31.5-36.5); Mean Corpuscular Volume 94 fL (80-100); NEUTROPHILS ABSOLUTE AUTO 4.80 K/mm3 (1.96-9.15); NEUTROPHILS PERCENT AUTO 63 % (41-73); NRBC ABSOLUTE 0.00 K/mm3 (0.00-0.02); NRBC Auto 0.0 /100 WBC (0.0-0.2); Platelet Count 244 K/mm3 (150-400); RDW Coefficient Variation 12.7 % (11.7-14.2); RDW Standard Deviation 44.1 fL (35.1-46.3)
[2025-03-18 07:04] LABS: Anion Gap 7.0 mmol/L (3-11); Blood Urea Nitrogen 6.0 mg/dL (8-24); CO2, Blood 29.0 mmol/L (21-32); Calcium, Blood 8.2 mg/dL (8.5-10.1); Chloride, Blood 105.0 mmol/L (98-108); Creatinine, Blood 0.8 mg/dL (0.60-1.20); Glucose, Blood 98.0 mg/dL (70-99); Potassium, Blood 3.8 mmol/L (3.5-5.5); Sodium, Blood 137.0 mmol/L (136-145)
[2025-03-18 07:31] VITALS: BP 114/86
--- NOTE | 2025-03-18 11:00 | NUR ---
NOTE ROUNDED ON PT THIS AM. SAID "D/C IV REGLAN AND IV FLUIDS." THIS RN SALINE LOCKED IV. PT ON TELE. REPORTED "WILL LIKELY DISCHARGE. PT REPORTED "HAVN'T FELT THIS BETTER IN WEEKS." PT REPORTS "STILL HAVING ABD PAIN AND NAUSEA BUT IMPROVED." PUT IN DISHCHARGE ORDERS. BEHAVIOR ANALYST REPORTED "WORKING ON DISCHARGE PAPERWORK."
--- NOTE | 2025-03-18 11:01 | NUR ---
DISCHARGE MED REC REVISION NOTE. THIS NURSE, TO WORK ON DISCHARGE PAPERWORK, WHEN PT STATED THAT HE DIDNT HAVE ENOUGH CREON TO [facility]ST UNTIL SEEN BY PCP AT THE [place]. THIS NURSE CALLED DR NUNEZ WHO AGREED TO ADD THIS TO BE FILLED AT [facility]. AT 1102 IN 03/18/25
[2025-03-18] MEDS ORDERED: HYDMOR2 PO (11:20)
[2025-03-18] MEDS ORDERED: Zofran4 MG PO (11:21)
[2025-03-18] MEDS ORDERED: NICO21TP TOP (11:21)
--- NOTE | 2025-03-18 12:27 | NUR ---
DISCHARGE NOTE PT A&OX4. PT ADMITTED DUE TO ACUTE PANCREATITIS. PT REPORTS SOME ABD PAIN. PAIN MANAGED PER EMAR. NO EMESIS REPORTS. PT VSS. PT DENIED CHEST PAIN SOB. TELE D/C. IV D/C PER BREAK RN. BREAK RN REVIEWED DISCHARGE INSTRUCTIONS AND MEDS WITH PT. MEDS FAXED TO PHARMACY PER DECK SUPERVISOR. PT ESCORTED BY WHEELCHAIR BY PLASTIC DUPLICATOR. PT LEFT WITH BELONGINGS.
== END 2025-03-18 11:48 | disposition home or self-care (01) | DRG 439 ==
LOC: ER 17:55 → MEDS 17:56 → ENPENDDIS 03-18 10:52 → MEDS 03-18 11:48
PROVIDERS: Student in an Organized Health Care Education/Training Program; ADMIT Internal Medicine
DX: K85.90 Acute pancreatitis without necrosis or infection, unspecified (principal); Z68.1 Body mass index [BMI] 19.9 or less, adult; K86.3 Pseudocyst of pancreas; K86.1 Other chronic pancreatitis; E78.5 Hyperlipidemia, unspecified; I10 Essential (primary) hypertension; D73.5 Infarction of spleen; I73.00 Raynaud's syndrome without gangrene; F43.10 Post-traumatic stress disorder, unspecified; Z87.820 Personal history of traumatic brain injury; F41.9 Anxiety disorder, unspecified; E78.1 Pure hyperglyceridemia; F10.20 Alcohol dependence, uncomplicated; Z88.8 Allergy status to other drugs, medicaments and biological substances; F17.220 Nicotine dependence, chewing tobacco, uncomplicated; Z89.421 Acquired absence of other right toe(s); Z98.890 Other specified postprocedural states; E86.0 Dehydration; E87.6 Hypokalemia; R00.1 Bradycardia, unspecified; R63.4 Abnormal weight loss
CPT/HCPCS: 36415; 80048; 80053; 80061; 83690; 83735; 83880; 84100; 85025; 93005; 93010; 96361; 96365; 96366; 96374; 96375; 96376; 99285-25; A9270; G0378; J1171; J2405; J2765; J3010; J3480; J7030; J7050; J7120

== ENCOUNTER 2025-03-19 14:16 | Inpatient (IN) | payer OTHER ==
[~2025-03-19] VITALS: Ht 170.2 cm; Wt 60.0 kg
[~2025-03-19 14:16] MED LIST changes: +HYDMOR2 PO; +NICO21TP TOP; +Zofran4 MG PO
[2025-03-19] MEDS ORDERED: Ondansetron HCl 2 MG / ML 2ML Vial IV ONE ×2 (14:30→14:55)
[2025-03-19] MEDS ORDERED: NS 1,000 ML IV SCH ×2 (14:30→14:55)
[2025-03-19 14:49] LABS: BASOPHILS ABSOLUTE AUTO 0.05 K/mm3 (0.00-0.23); BASOPHILS PERCENT AUTO 0 % (0-2); EOSINOPHILS ABSOLUTE AUTO 0.17 K/mm3 (0.00-0.68); EOSINOPHILS PERCENT AUTO 1 % (0-6); Hematocrit 38.2 % (37.0-53.0); Hemoglobin 13.3 g/dL (13.5-17.5); IMMATURE GRAN ABSOLUTE AUTO 0.07 K/mm3 (0.00-0.10); IMMATURE GRAN PERCENT AUTO 1 % (0-1); LYMPHOCYTES ABSOLUTE AUTO 1.98 K/mm3 (0.84-5.20); LYMPHOCYTES PERCENT AUTO 13 % (21-46); MONOCYTES ABSOLUTE AUTO 0.69 K/mm3 (0.16-1.47); MONOCYTES PERCENT AUTO 5 % (4-13); Mean Corpuscular HGB Conc 34.8 g/dL (31.5-36.5); Mean Corpuscular Volume 93 fL (80-100); NEUTROPHILS ABSOLUTE AUTO 12.36 K/mm3 (1.96-9.15); NEUTROPHILS PERCENT AUTO 81 % (41-73); NRBC ABSOLUTE 0.00 K/mm3 (0.00-0.02); NRBC Auto 0.0 /100 WBC (0.0-0.2); Platelet Count 313 K/mm3 (150-400); RDW Coefficient Variation 12.9 % (11.7-14.2); RDW Standard Deviation 43.6 fL (35.1-46.3)
[2025-03-19] MEDS ORDERED: Morphine Sulfate 4 MG/1 ML Injection IV ONE (14:55)
[2025-03-19 15:25] LABS: Alanine Aminotransfer (ALT/SGP 47.0 U/L (12-78); Albumin, Blood 3.6 g/dL (3.4-5.0); Albumin/Globulin Ratio 1.2 (0.8-1.8); Anion Gap 8.0 mmol/L (3-11); Aspartate Aminotrans (AST/SGOT 37.0 U/L (12-37); Bilirubin, Total 0.4 mg/dL (0.1-1.0); Blood Urea Nitrogen 10.0 mg/dL (8-24); CO2, Blood 29.0 mmol/L (21-32); Calcium, Blood 8.8 mg/dL (8.5-10.1); Chloride, Blood 104.0 mmol/L (98-108); Creatinine, Blood 0.86 mg/dL (0.60-1.20); Globulin, Blood 2.9 g/dL (2.2-4.0); Glucose, Blood 141.0 mg/dL (70-99); Potassium, Blood 3.7 mmol/L (3.5-5.5); Sodium, Blood 137.0 mmol/L (136-145); Total Protein, Blood 6.5 g/dL (6.4-8.2)
[2025-03-19] MEDS ORDERED: HYDROmorphone HCl/Pf 1MG SYR IV ONE ×2 (15:55→17:00)
[2025-03-19 17:21] LABS: Hematocrit 35.6 % (37.0-53.0); Hemoglobin 12.4 g/dL (13.5-17.5)
[2025-03-19] MEDS ORDERED: HYDROmorphone HCl/Pf 1MG SYR IV PRN ×2 (18:40→20:25)
[2025-03-19] MEDS ORDERED: Metoclopramide HCl 5MG / ML 2ML Vial IV ONE (18:40)
[2025-03-19 18:45] LABS: Source, Urine Clean Catch
[2025-03-19 18:51] LABS: Bilirubin, Urine Neg (Neg); Glucose Qualitative, Urine Neg (Neg); Ketones, Urine 3+ (Neg); Leukocyte Esterase, Urine Neg (Neg); Protein, Urine Neg (Neg); Specific Gravity, Urine 1.015 (1.003-1.022); Urobilinogen, Urine NORM (Normal)
[2025-03-19 18:56] LABS: Color, Urine Yellow (P-Yellow)
[2025-03-19 18:59] LABS: Red Blood Cells, Urine 0-2 /hpf (0-2); White Blood Cells, Urine 0-2 /hpf (0-5)
[2025-03-19] MEDS ORDERED: Ondansetron HCl 2 MG / ML 2ML Vial IV PRN (20:25)
[2025-03-19] MEDS ORDERED: Metoclopramide HCl 5MG / ML 2ML Vial IV PRN (20:30)
[2025-03-20] VITALS (7 sets, daily range): BP systolic 114–161; BP diastolic 77–92
[2025-03-20 00:37] LABS: Hematocrit 37.3 % (37.0-53.0); Hemoglobin 12.7 g/dL (13.5-17.5)
[2025-03-20] MEDS ORDERED: HYDROmorphone HCl/Pf 1MG SYR IV ONE (00:40)
[2025-03-20] MEDS ORDERED: HYDROmorphone HCl/Pf 1MG SYR IV PRN (01:55)
--- NOTE | 2025-03-20 02:37 | NUR ---
ARRIVAL TO PCU ROOM 14 PT ARRIVED ON A GURNEY AND WAS ABLE TO STAND AND TRANSFER TO THE BED. NO SKIN ISSUES NOTED ON PT. PT IS INDEPENT IN THE ROOM AND TO THE BATHROOM. USES CALL LIGHT. SINCE ARRIVING PATIENT HAS HAD 8-10 UPPER ABDOMEN PAIN OUT OF A SCALE OF 0-10. PATIENT REQUIRING Q1 PAIN MEDICATION PER EMAR. PT ALSO EXPIERENCING N/V. TREATING NAUSEA PER EMAR. VOMITTED GREEN EMEMIS X3. IV FLUIDS INFUSING, CURRENTLY NPO. BED IN LOWEST POSTION, CALL LIGHT IN REACH.
[2025-03-20 04:06] LABS: BASOPHILS ABSOLUTE AUTO 0.02 K/mm3 (0.00-0.23); BASOPHILS PERCENT AUTO 0 % (0-2); EOSINOPHILS ABSOLUTE AUTO 0.08 K/mm3 (0.00-0.68); EOSINOPHILS PERCENT AUTO 1 % (0-6); Hematocrit 35.9 % (37.0-53.0); Hemoglobin 12.2 g/dL (13.5-17.5); IMMATURE GRAN ABSOLUTE AUTO 0.03 K/mm3 (0.00-0.10); IMMATURE GRAN PERCENT AUTO 0 % (0-1); LYMPHOCYTES ABSOLUTE AUTO 1.34 K/mm3 (0.84-5.20); LYMPHOCYTES PERCENT AUTO 11 % (21-46); MONOCYTES ABSOLUTE AUTO 0.68 K/mm3 (0.16-1.47); MONOCYTES PERCENT AUTO 6 % (4-13); Mean Corpuscular HGB Conc 34.0 g/dL (31.5-36.5); Mean Corpuscular Volume 94 fL (80-100); NEUTROPHILS ABSOLUTE AUTO 10.21 K/mm3 (1.96-9.15); NEUTROPHILS PERCENT AUTO 83 % (41-73); NRBC ABSOLUTE 0.00 K/mm3 (0.00-0.02); NRBC Auto 0.0 /100 WBC (0.0-0.2); Platelet Count 268 K/mm3 (150-400); RDW Coefficient Variation 13.2 % (11.7-14.2); RDW Standard Deviation 45.1 fL (35.1-46.3)
[2025-03-20 04:20] LABS: Prothrombin Time Results 13.3 Sec (9.7-11.5)
[2025-03-20 04:30] LABS: Alanine Aminotransfer (ALT/SGP 38.0 U/L (12-78); Albumin, Blood 3.5 g/dL (3.4-5.0); Albumin/Globulin Ratio 1.3 (0.8-1.8); Anion Gap 10.0 mmol/L (3-11); Aspartate Aminotrans (AST/SGOT 20.0 U/L (12-37); Bilirubin, Total 0.4 mg/dL (0.1-1.0); Blood Urea Nitrogen 10.0 mg/dL (8-24); CO2, Blood 27.0 mmol/L (21-32); Calcium, Blood 8.4 mg/dL (8.5-10.1); Chloride, Blood 105.0 mmol/L (98-108); Creatinine, Blood 0.63 mg/dL (0.60-1.20); Globulin, Blood 2.6 g/dL (2.2-4.0); Glucose, Blood 117.0 mg/dL (70-99); Magnesium, Blood 1.8 mg/dL (1.6-2.4); Potassium, Blood 3.6 mmol/L (3.5-5.5); Sodium, Blood 138.0 mmol/L (136-145); Total Protein, Blood 6.1 g/dL (6.4-8.2)
[2025-03-20] MEDS ORDERED: Morphine Sulfate 4 MG/1 ML Injection IV PRN (04:50)
--- NOTE | 2025-03-20 05:45 | NUR ---
NOC SHIFT SUMMARY PT IS A+O X4 ABLE TO MAKE NEEDS KNOWN. PT REMAINS IN A LOT OF PAIN, MOANING OUT AND GRUNTING WHEN THIS RN IS IN ROOM. PAIN MANAGMENT SLIGHTLY BETTER ACCORDING TO PT NOW THAT PAIN MEDICATION HAS BEEN GIVEN Q1 HOURS. PT ALSO STILL HAVING N/V. PRN NAUSEA MEDICATIONS GIVEN WITH SHORT TERM RELIEF. PT SHOWING SINUS ABDOULAYE ON TELE T/O THE SHIFT. DENIES CHEST PAIN OR PRESSURE. BIOX SHOWING 99% SPO2, BREATHING EVEN AND UNLABORED. LR INFUSING @150 PER EMAR. PATIENT REMAINS NPO. IDEPENT TO THE BR AND BACK. USES CALL LIGHT. CARE CONTINUES, WILL REPORT TO ONCOMING RN.
[2025-03-20] MEDS ORDERED: Mag Sulfate 1 GM/D5% 100ML 100 ML IV STA (07:45)
[2025-03-20 09:01] LABS: Hematocrit 34.3 % (37.0-53.0); Hemoglobin 11.8 g/dL (13.5-17.5)
[2025-03-20] MEDS ORDERED: HYDROmorphone 1 MG/ML 30 ML Bag IV PRN (09:20)
[2025-03-20] MEDS ORDERED: Ondansetron HCl 2 MG / ML 2ML Vial IV PRN (11:30)
[2025-03-20 14:38] LABS: Hematocrit 36.7 % (37.0-53.0); Hemoglobin 12.7 g/dL (13.5-17.5)
--- NOTE | 2025-03-20 18:22 | NUR ---
SHIFT SUMMARY: PT A&OX4. FOLLOWS COMMANDS AND MAKES NEEDS KNOWN TO STAFF. PT GOT UP TO THE BATHROOM A FEW TIME THIS SHIFT WITHOUT ANY COMPLATINS. DENIES ANY COMPLAINTS OF CP, PRESSURE, TIGHTNESS OR SOB. VSS. PT COMPLAINED OF NAUSEA MOST OF THE DAY WHICH HE WAS MEDICATIED FOR. PT WAS STARTED ON A ROUTE SALES SPECIALIST PUMP TODAY DUE TO NEEDING Q HOUR PAIN MEDS. STILL AWAITING TRANSFER TO A HIGHER LEVEL OF CARE. NO OTHER SIGNIFICANT EVENTS HAPPENED DURING THIS SHIFT. WILL CONTINUE TO CARE FOR PT TILL END OF SHIFT.
[2025-03-20] MEDS ORDERED: D5W-LR 1,000 ML IV SCH (19:00)
--- NOTE | 2025-03-21 00:49 | NUR ---
NURSE NOTE [facility] CALLED FOR A QUICK UPDATE ON PATIENT OVER THE PHONE ASKED FOR VITALS AND MENTATION STATUS. UPDATE GIVEN. WILL CALL BACK TOMORROW FOR ANOTHER UPDATE.
[2025-03-21 03:42] VITALS: BP 102/67
[2025-03-21 04:13] LABS: BASOPHILS ABSOLUTE AUTO 0.04 K/mm3 (0.00-0.23); BASOPHILS PERCENT AUTO 1 % (0-2); EOSINOPHILS ABSOLUTE AUTO 0.28 K/mm3 (0.00-0.68); EOSINOPHILS PERCENT AUTO 4 % (0-6); Hematocrit 30.5 % (37.0-53.0); Hemoglobin 10.2 g/dL (13.5-17.5); IMMATURE GRAN ABSOLUTE AUTO 0.02 K/mm3 (0.00-0.10); IMMATURE GRAN PERCENT AUTO 0 % (0-1); LYMPHOCYTES ABSOLUTE AUTO 2.77 K/mm3 (0.84-5.20); LYMPHOCYTES PERCENT AUTO 39 % (21-46); MONOCYTES ABSOLUTE AUTO 0.58 K/mm3 (0.16-1.47); MONOCYTES PERCENT AUTO 8 % (4-13); Mean Corpuscular HGB Conc 33.4 g/dL (31.5-36.5); Mean Corpuscular Volume 96 fL (80-100); NEUTROPHILS ABSOLUTE AUTO 3.37 K/mm3 (1.96-9.15); NEUTROPHILS PERCENT AUTO 48 % (41-73); NRBC ABSOLUTE 0.00 K/mm3 (0.00-0.02); NRBC Auto 0.0 /100 WBC (0.0-0.2); Platelet Count 219 K/mm3 (150-400); RDW Coefficient Variation 13.3 % (11.7-14.2); RDW Standard Deviation 47.3 fL (35.1-46.3)
[2025-03-21 04:40] LABS: Anion Gap 5.0 mmol/L (3-11); Blood Urea Nitrogen 9.0 mg/dL (8-24); CO2, Blood 30.0 mmol/L (21-32); Calcium, Blood 8.2 mg/dL (8.5-10.1); Chloride, Blood 107.0 mmol/L (98-108); Creatinine, Blood 0.66 mg/dL (0.60-1.20); Glucose, Blood 89.0 mg/dL (70-99); Potassium, Blood 3.5 mmol/L (3.5-5.5); Sodium, Blood 138.0 mmol/L (136-145)
--- NOTE | 2025-03-21 05:44 | NUR ---
NOC SHIFT SUMMARY PT IS A+O X4 ABLE TO MAKE NEEDS KNOWN USES CALL LIGHT. IDEPENT/ SBA FOR CORD MANAGMENT TO THE BATHROOM. STREET SPRINKLER PUMP WORKED WELL FOR PAIN MANAGMENT FOR THIS PATIENT. MUCH BETTER PAIN CONTROL THEN THE NIGHT PRIOR. IV FLUIDS INFUSING PER EMAR. MEDICATED FOR NAUSEA PRN. PATIENT WAS ABLE TO REST ON AND OFF DURING THE NIGHT. DENIES CHEST PAIN/ PRESSURE, SOB. VSS. CARE CONTINUES, WILL REPORT TO ONCOMING RN.
[2025-03-21 07:45] VITALS: BP 108/78
[2025-03-21 11:32] VITALS: BP 95/67
[2025-03-21 15:11] LABS: Hematocrit 33.9 % (37.0-53.0); Hemoglobin 11.2 g/dL (13.5-17.5)
[2025-03-21 16:00] VITALS: BP 95/63
--- NOTE | 2025-03-21 16:55 | NUR ---
PT IS A&Ox4 AND ABLE TO MAKE NEEDS KNOWN. HE IS ON RA W/O2 SATS > 92%. HE AMBULATES INDEPENDENTLY IN THE ROOM. NO EPISODES OF VOMITING TODAY AND TOLERATING A CLD. D5LR AND FLEXIBLE MACHINING SYSTEM MACHINIST PUMP RUNNING PER EMAR. NO NEEDS OR CONCERNS NOTED @ THIS TIME. IN ROOM VISITING. BED IN LOW POSITION, CALL LIGHT AND PERSONAL BELONGINGS IN REACH.
[2025-03-21 19:23] VITALS: BP 115/76
--- NOTE | 2025-03-21 20:57 | NUR ---
ASSUMPTION OF CARE/ASSESSMENT: ASSUMED CARE OF PT @ 1900; BEDSIDE SHIFT REPORT COMPLETED WITH DENVER STALLWORTH. PT A&O X 4, PLEASANT AND COOPERATIVE WITH CARE. PT ON RA, LUNGS CLEAR T/O, DENEIS SOB AND SPO2 100; PT HAS CONT. ETCO2 WHILE ON PLANT ENGINEERING SUPERVISOR PUMP. SB-SR ON MONITOR WITH HR 50-60'S, BP STABLE AND DENIES CHEST PAIN/PRESSURE AT THIS TIME. PT 6/10 ABD AT START OF SHIFT, ABD TENDER/SOFT TO PALPATION AND STATES PAIN IS TO UPPER ABD. GOOD PAIN RELIEF WITH DILAUDID PLANT ENGINEERING SUPERVISOR PUMP. PT CLEAR LIQUID DIET, TOLERATES INTAKE WITH INTERMITTEN NAUSEA THAT IS RELIEVED WITH REGLAN/ZOFRAN. PT USING URINAL INDEPENDENT; URINE CLEAR/LIGHT YELLOW, GOOD OUTPUT. PT INDEPENDENT WITH ADL'S; OCCASIONALLY NEEDS ASSISTANCE WITH CORDS BUT CALLS FOR HELP AND MAKES NEEDS KNOWN. BED LOWERED, CALL LIGHT IN REACH.
--- NOTE | 2025-03-21 22:09 | NUR ---
ASSUMPTION OF CARE/ASSESSMENT: ASSUMED CARE OF PT AT 1900; BEDSIDE SHIFT REPORT RECEIVED FROM DENVER STALLWORTH. PT A&O X 4, PLEASANT AND COOPERATIVE WITH CARE. PT ON NC @ 2LPM, LUNGS CLEAR T/O AND DENIES SOB AT THIS TIME. SB-SR ON MONITOR WITH HR 60-70, DENIES CHEST PAIN/PRESSURE AND CONTINUOUS DELIVERY NURSE IN PLACE. PT TOLERATES PO INTAKE. URINAL AT BEDSIDE. PT INDEPENDENT WITH ADL'S, ASSISTANCE WITH TRANSFER TO COMMODE AND WILL USE CALL LIGHT APPROPRIATELY. PIV TO RAC THAT IS PATENT AND INFUSING HEPARIN @ 18 UNITS/HR. BED LOWERED, CALL LIGHT IN REACH.
[2025-03-21 23:44] VITALS: BP 105/74
[2025-03-22 04:57] VITALS: BP 115/86
--- NOTE | 2025-03-22 05:15 | NUR ---
SHIFT SUMMARY: NO ACUTE CHANGES OVERNIGHT, VSS THROUGHOUT THE SHIFT. PT HAD INTERMITTEN NAUSEA; PRN ZOFRAN AN REGLAN GIVEN WITH GOOD EFFECT. PT HAS DILAUDID TECHNICAL TRANSLATOR AND D5 LR @ 150 MLS/HR. PT ABLE TO MAKE NEEDS KNOWN. BED LOWERED, CALL LIGHT IN REACH. WILL REPORT TO ONCOMING RN.
[2025-03-22 08:06] VITALS: BP 123/90; BP 124/89
[2025-03-22 08:19] LABS: Hematocrit 36.1 % (37.0-53.0); Hemoglobin 12.1 g/dL (13.5-17.5)
[2025-03-22 08:44] LABS: Anion Gap 9.0 mmol/L (3-11); Blood Urea Nitrogen 5.0 mg/dL (8-24); CO2, Blood 27.0 mmol/L (21-32); Calcium, Blood 8.2 mg/dL (8.5-10.1); Chloride, Blood 107.0 mmol/L (98-108); Creatinine, Blood 0.68 mg/dL (0.60-1.20); Glucose, Blood 99.0 mg/dL (70-99); Potassium, Blood 3.7 mmol/L (3.5-5.5); Sodium, Blood 139.0 mmol/L (136-145)
[2025-03-22 11:40] VITALS: BP 101/72
[2025-03-22] MEDS ORDERED: Amylase/Lipase/Protease DR Cap 12,000 PO SCH (15:00)
[2025-03-22 16:04] VITALS: BP 143/95
--- NOTE | 2025-03-22 18:24 | NUR ---
PT SUMMARY; NO ACUTE CHANGE FOR THE SHIFT. PT STILL ON DATA CENTER MANAGER PUMP, PAIN CONTROLLED T/O SHIFT 0.2MG WITH TOTAL OF 1MG/HR, 10 MINS LOCKOUT INTERVAL. PT HAS BEEN GETTING NAUSEA MEDS WELL ALTERNATING ZOFRAN AND REGLAN. VITALS HAS BEEN STABLE. STILL AWAIING FOR BED UP IN [facility]. DIET WAS ADVANCED TODAY TO LOW FAT, LOW FIBER DIET KOSHER DIET. TOELRATING WELL. FAMILY HAS BEEN AT THE BEDSIDE FOR THE SHIFT, AWARE OF THE PLAN OF CARE, STATUS CHANGED TO MEDICAL STATUS NO TELE. NO OTHER ISSUES FOR THE SHIFT, PT TO TRANSFER TO 226 WHEN NURSE IS AVAILABLE FOR REPORT.
[2025-03-23 05:20] LABS: BASOPHILS ABSOLUTE AUTO 0.06 K/mm3 (0.00-0.23); BASOPHILS PERCENT AUTO 1 % (0-2); EOSINOPHILS ABSOLUTE AUTO 0.40 K/mm3 (0.00-0.68); EOSINOPHILS PERCENT AUTO 4 % (0-6); Hematocrit 37.3 % (37.0-53.0); Hemoglobin 12.3 g/dL (13.5-17.5); IMMATURE GRAN ABSOLUTE AUTO 0.03 K/mm3 (0.00-0.10); IMMATURE GRAN PERCENT AUTO 0 % (0-1); LYMPHOCYTES ABSOLUTE AUTO 1.44 K/mm3 (0.84-5.20); LYMPHOCYTES PERCENT AUTO 14 % (21-46); MONOCYTES ABSOLUTE AUTO 0.93 K/mm3 (0.16-1.47); MONOCYTES PERCENT AUTO 9 % (4-13); Mean Corpuscular HGB Conc 33.0 g/dL (31.5-36.5); Mean Corpuscular Volume 97 fL (80-100); NEUTROPHILS ABSOLUTE AUTO 7.67 K/mm3 (1.96-9.15); NEUTROPHILS PERCENT AUTO 73 % (41-73); NRBC ABSOLUTE 0.00 K/mm3 (0.00-0.02); NRBC Auto 0.0 /100 WBC (0.0-0.2); Platelet Count 251 K/mm3 (150-400); RDW Coefficient Variation 13.2 % (11.7-14.2); RDW Standard Deviation 46.8 fL (35.1-46.3)
[2025-03-23 05:55] LABS: Anion Gap 8.0 mmol/L (3-11); Blood Urea Nitrogen 7.0 mg/dL (8-24); CO2, Blood 28.0 mmol/L (21-32); Calcium, Blood 8.7 mg/dL (8.5-10.1); Chloride, Blood 104.0 mmol/L (98-108); Creatinine, Blood 0.69 mg/dL (0.60-1.20); Glucose, Blood 102.0 mg/dL (70-99); Potassium, Blood 3.7 mmol/L (3.5-5.5); Sodium, Blood 136.0 mmol/L (136-145)
[2025-03-23 06:18] VITALS: BP 124/70
--- NOTE | 2025-03-23 06:47 | NUR ---
SHIFT SUMMARY PT TRANSFERRED TO FLOOR FROM PCU AT 2125. HERE WITH PANCREATIC PSEUDOCYST WHICH RUPTURED. GAVE PT ZOFRAN PER EMAR FOR NAUSEA AT 1938. APPROX 2009, PT VOMITED 1100ML. MEDICATED WITH IV REGLAN PER EMAR AT 2018. PT NOW RESTING PEACEFULLY.
[2025-03-23 07:27] VITALS: BP 121/87
[2025-03-23] MEDS ORDERED: Pantoprazole Sodium 40 MG Injection IV SCH (10:00)
[2025-03-23] MEDS ORDERED: D5W-LR 1,000 ML IV SCH (10:00)
[2025-03-23 14:53] VITALS: BP 114/73
--- NOTE | 2025-03-23 17:42 | NUR ---
SHIFT SUMMARY PATIENT IS AOX4, IND IN ROOM. COURT OFFICER FOR PAIN CONTROL. PATIENT HAS HAD LARGE AMOUNT OF EMESIS. MEDICATED FOR NAUSEA. ABLE TO MAKE NEEDS KNOWN. IV FLUIDS RUNNING. AWAITING BED FOR [facility].
[2025-03-23 19:08] VITALS: BP 114/83
[2025-03-23 20:13] VITALS: BP 119/81
[2025-03-24 05:42] LABS: BASOPHILS ABSOLUTE AUTO 0.05 K/mm3 (0.00-0.23); BASOPHILS PERCENT AUTO 1 % (0-2); EOSINOPHILS ABSOLUTE AUTO 0.35 K/mm3 (0.00-0.68); EOSINOPHILS PERCENT AUTO 4 % (0-6); Hematocrit 32.4 % (37.0-53.0); Hemoglobin 11.1 g/dL (13.5-17.5); IMMATURE GRAN ABSOLUTE AUTO 0.04 K/mm3 (0.00-0.10); IMMATURE GRAN PERCENT AUTO 1 % (0-1); LYMPHOCYTES ABSOLUTE AUTO 1.76 K/mm3 (0.84-5.20); LYMPHOCYTES PERCENT AUTO 20 % (21-46); MONOCYTES ABSOLUTE AUTO 0.80 K/mm3 (0.16-1.47); MONOCYTES PERCENT AUTO 9 % (4-13); Mean Corpuscular HGB Conc 34.3 g/dL (31.5-36.5); Mean Corpuscular Volume 95 fL (80-100); NEUTROPHILS ABSOLUTE AUTO 5.66 K/mm3 (1.96-9.15); NEUTROPHILS PERCENT AUTO 65 % (41-73); NRBC ABSOLUTE 0.00 K/mm3 (0.00-0.02); NRBC Auto 0.0 /100 WBC (0.0-0.2); Platelet Count 235 K/mm3 (150-400); RDW Coefficient Variation 13.2 % (11.7-14.2); RDW Standard Deviation 45.5 fL (35.1-46.3)
--- NOTE | 2025-03-24 05:48 | NUR ---
SHIFT SUMMARY PT HAS RESTED MOST OF THE NIGHT. PT REPORTS DILAUDID APPRAISER OIL AND WATER HAS BEEN EFFECTIVE FOR PAIN CONTROL. INTERMITTENT EPISODES OF N/V, AND HEART BURN. X1 EPISODE OF EMESIS. PT REPORTS HE WAS SLEEPING AND WOKE UP SICK. HE VOMITTED 1300 MLS. PT MEDICATED PER EMAR WITH EFFECT. PT HAS BEEN STICKING TO CLEAR LIQUIDS THIS SHIFT. PT HAS BEEN UP IND IN ROOM. RESP E/U ON RA, VITALS STABLE. PT STILL WAITING FOR BED AT [facility]. BED IN LOWEST POSITION, CALL LIGHT WITHIN REACH.
[2025-03-24 06:15] LABS: Anion Gap 8.0 mmol/L (3-11); Blood Urea Nitrogen 8.0 mg/dL (8-24); CO2, Blood 29.0 mmol/L (21-32); Calcium, Blood 8.6 mg/dL (8.5-10.1); Chloride, Blood 104.0 mmol/L (98-108); Creatinine, Blood 0.71 mg/dL (0.60-1.20); Glucose, Blood 118.0 mg/dL (70-99); Potassium, Blood 3.3 mmol/L (3.5-5.5); Sodium, Blood 138.0 mmol/L (136-145)
[2025-03-24 06:28] VITALS: BP 117/77
[2025-03-24 07:16] VITALS: BP 105/80
[2025-03-24] MEDS ORDERED: Pantoprazole Sodium 40 MG Injection IV SCH (09:00)
--- NOTE | 2025-03-24 09:30 | NUR ---
CALLED [facility] C[facility] ON UPDATE. COORDINATOR VERBALIZED ACCEPTING PHYSICIAN IS DR. NITHIN BALDERAS WITH THE [facility]AN[facility]IC [facility]. STILL WAITING ON BED AVAILABILITY.
[2025-03-24 14:47] VITALS: BP 112/84
--- NOTE | 2025-03-24 15:37 | NUR ---
SHIFT SUMMARY PSUEDOCYST PANCREASE PT IS A/OX4, VSS. PT IS IND IN ROOM, ABLE TO MAKE NEEDS KNOWN. PAIN MANAGED WITH REPORTS ANALYST PUMP. NO EMESIS T/O SHIFT MEDICATED FOR NAUSEA PER EMAR. TOLERATING FULL LIQUID DIET. VOIDING WELL. PT IS PLEASANT AND COOPERATIVE W/ CARE. BED IN LOWEST POSITION CALL LIGHT IN REACH. PLAN IS FOR TRANSFER TO [facility], AWAITING BED.
--- NOTE | 2025-03-24 18:07 | NUR ---
UPDATE: PT HAD ONE EPISODE OF EMESIS SINCE PRIOR NOTE, MEDICATED PER EMAR. NO OTHER CHANGES.
[2025-03-24 20:08] VITALS: BP 120/87
--- NOTE | 2025-03-24 23:00 | NUR ---
N/V PT HAD OVER 1500 MLS OF EMESIS OUT, PT REPORTED THAT HE WOKE UP AND FELT SICK. PT MEDICATED WITH ZOFRAN INITALLY, BUT IT DID NOT RELIEVE NAUSEA. PT ALSO REPORTED INCREASED ABD PAIN WITH THE NAUSEA. BROUGHT IN REGLAN AND PT HAD A LARGE AMOUNT OF EMESIS FILLING THE BAG. BELLY IS NOT DISTENDED. HE REPORTS THAT THE PAIN IS SIMILAR TO HOW IT FELT WHEN HE FIRST WAS ADMITTED. AFTER VOMITING PT REPORTS THAT THE PAIN WAS RELIEVED. PT IS VOMITING ABOUT ONCE PER SHIFT A LARGE AMOUNT. DR. GOTTI CALLED AND NOTIFIED OF THE AMOUNT PT VOMITED AND THE INCREASED PAIN BEFORE VOMITING, AND THAT IT WAS RELIEVED AFTERWARDS. DR. GOTTI WANTS PT BACK ON CLEAR LIQUIDS. HE STATES THAT IF PAIN BECOMES WORSE OR BELLY BECOMES DISTENDED TO NOTIFY, AND IMAGING WILL BE ORDERED, BUT AT THIS TIME JUST TO MONITOR FOR NOW.
[2025-03-25 05:29] VITALS: BP 125/95
[2025-03-25 05:43] LABS: BASOPHILS ABSOLUTE AUTO 0.06 K/mm3 (0.00-0.23); BASOPHILS PERCENT AUTO 1 % (0-2); EOSINOPHILS ABSOLUTE AUTO 0.40 K/mm3 (0.00-0.68); EOSINOPHILS PERCENT AUTO 4 % (0-6); Hematocrit 36.1 % (37.0-53.0); Hemoglobin 12.4 g/dL (13.5-17.5); IMMATURE GRAN ABSOLUTE AUTO 0.02 K/mm3 (0.00-0.10); IMMATURE GRAN PERCENT AUTO 0 % (0-1); LYMPHOCYTES ABSOLUTE AUTO 2.52 K/mm3 (0.84-5.20); LYMPHOCYTES PERCENT AUTO 26 % (21-46); MONOCYTES ABSOLUTE AUTO 0.80 K/mm3 (0.16-1.47); MONOCYTES PERCENT AUTO 8 % (4-13); Mean Corpuscular HGB Conc 34.3 g/dL (31.5-36.5); Mean Corpuscular Volume 94 fL (80-100); NEUTROPHILS ABSOLUTE AUTO 5.83 K/mm3 (1.96-9.15); NEUTROPHILS PERCENT AUTO 61 % (41-73); NRBC ABSOLUTE 0.00 K/mm3 (0.00-0.02); NRBC Auto 0.0 /100 WBC (0.0-0.2); Platelet Count 250 K/mm3 (150-400); RDW Coefficient Variation 13.0 % (11.7-14.2); RDW Standard Deviation 44.9 fL (35.1-46.3)
[2025-03-25 06:02] LABS: Anion Gap 6.0 mmol/L (3-11); Blood Urea Nitrogen 8.0 mg/dL (8-24); CO2, Blood 29.0 mmol/L (21-32); Calcium, Blood 8.5 mg/dL (8.5-10.1); Chloride, Blood 105.0 mmol/L (98-108); Creatinine, Blood 0.76 mg/dL (0.60-1.20); Glucose, Blood 98.0 mg/dL (70-99); Potassium, Blood 3.9 mmol/L (3.5-5.5); Sodium, Blood 136.0 mmol/L (136-145)
[2025-03-25 07:19] VITALS: BP 116/85
--- NOTE | 2025-03-25 07:30 | NUR ---
SHIFT SUMMARY PAIN BEING MANAGED WITH MEDS PER EMAR. PT HAD A LARGE AMOUNT OF EMESIS THIS SHIFT. MADE AWARE AND PT NOW BACK ON A CLEAR LIQUID DIET. PT HAS BEEN UP AND AMBULATING, VOIDING. VITALS ARE STABLE. STILL WAITING FOR BED AT [facility] AT THIS TIME.
--- NOTE | 2025-03-25 10:46 | NUR ---
DR ALBA IN TO SEE PT.
[2025-03-25 15:18] VITALS: BP 117/93
[2025-03-25 16:22] LABS: CORONAVIRUS COVID-19 AG Negative (NEGATIVE)
[2025-03-25 16:57] VITALS: BP 117/93
--- NOTE | 2025-03-25 17:43 | NUR ---
SUMMARY PT MEDICATED T/O DAY PER ORDERS FOR N/V. HAD 1200 ML EMESIS THIS SHIFT. TAKING CLEAR LIQUID DIET. PT REPORTED TO FEDERICA ORTEGA THAT NOTICED SOME "TWITCHING" TO LEG AFTER REGLAN. PT ADVISED TO REPORT IF IT REOCCURS. SHOWERED TODAY. PAIN TOLERABLE W/DILAUDID CATTLE KNOCKER. AWAITING TRANSFER TO [facility].
[2025-03-25 19:59] VITALS: BP 112/81
--- NOTE | 2025-03-25 20:41 | NUR ---
TRANSFER GAVE REPORT TO [facility] NURSE CIRA FROM UNIT 10 A @APPROX 1951. TRANSPORT TEAM ARRIVED TO GET PT AT APPROX 2029. PT REPORTED NAUSEA & MEDICATED W/ZOFRAN. PT LEFT W/ASSISTANT BUSINESS MANAGER PUMP IN PLACE.
== END 2025-03-25 20:35 | disposition short-term general hospital (02) | DRG 438 ==
LOC: ER 14:16 → PCU 22:46 → SURS 03-22 19:27
PROVIDERS: Emergency Medicine; Internal Medicine; Nurse Practitioner Acute Care; Student in an Organized Health Care Education/Training Program; ADMIT Student in an Organized Health Care Education/Training Program
DX: K86.3 Pseudocyst of pancreas (principal); K85.90 Acute pancreatitis without necrosis or infection, unspecified; I82.891 Chronic embolism and thrombosis of other specified veins; I10 Essential (primary) hypertension; E78.00 Pure hypercholesterolemia, unspecified; F41.9 Anxiety disorder, unspecified; F17.220 Nicotine dependence, chewing tobacco, uncomplicated; R00.1 Bradycardia, unspecified; F10.20 Alcohol dependence, uncomplicated; K21.9 Gastro-esophageal reflux disease without esophagitis; Z89.421 Acquired absence of other right toe(s); Z98.890 Other specified postprocedural states; Z88.8 Allergy status to other drugs, medicaments and biological substances; Z79.01 Long term (current) use of anticoagulants; Z79.899 Other long term (current) drug therapy; Z79.891 Long term (current) use of opiate analgesic
CPT/HCPCS: 36415; 74174; 74177; 80048; 80053; 81001; 81003; 82947; 83690; 83735; 85014; 85018; 85025; 85610; 86850; 86870; 86900; 86901; 86905; 87426-QW; 93005; 93010; 94762; 96361; 96374-59; 96375-59; 96376-59; 99285-25; A9270; J1171; J2270; J2405; J2470; J2765; J3475; J3480; J7030; J7050; J7120; J7121; Q9967

== ENCOUNTER 2025-04-15 03:09 | Emergency (ER) | payer OTHER ==
[~2025-04-15] VITALS: Ht 170.2 cm; Wt 61.2 kg
[2025-04-15] MEDS ORDERED: ELIQUIS5 M2 PO (03:28)
[2025-04-15] MEDS ORDERED: ONDA4 PO (03:29)
[2025-04-15] MEDS ORDERED: OXYC5 PO (03:29)
[2025-04-15] MEDS ORDERED: PANT40 PO (03:30)
[2025-04-15] MEDS ORDERED: MIRALAX17 GM PO (03:30)
[2025-04-15] MEDS ORDERED: Morphine Sulfate 4 MG/1 ML Injection ONE (03:49)
[2025-04-15] MEDS ORDERED: Morphine Sulfate 4 MG/1 ML Injection IV ONE (03:50)
[2025-04-15] MEDS ORDERED: Ondansetron HCl 2 MG / ML 2ML Vial IV ONE ×2 (03:50→10:35)
[2025-04-15 04:16] LABS: BASOPHILS ABSOLUTE AUTO 0.05 K/mm3 (0.00-0.23); BASOPHILS PERCENT AUTO 1 % (0-2); EOSINOPHILS ABSOLUTE AUTO 0.38 K/mm3 (0.00-0.68); EOSINOPHILS PERCENT AUTO 4 % (0-6); Hematocrit 31.2 % (37.0-53.0); Hemoglobin 10.5 g/dL (13.5-17.5); IMMATURE GRAN ABSOLUTE AUTO 0.04 K/mm3 (0.00-0.10); IMMATURE GRAN PERCENT AUTO 0 % (0-1); LYMPHOCYTES ABSOLUTE AUTO 2.26 K/mm3 (0.84-5.20); LYMPHOCYTES PERCENT AUTO 23 % (21-46); MONOCYTES ABSOLUTE AUTO 0.53 K/mm3 (0.16-1.47); MONOCYTES PERCENT AUTO 5 % (4-13); Mean Corpuscular HGB Conc 33.7 g/dL (31.5-36.5); Mean Corpuscular Volume 95 fL (80-100); NEUTROPHILS ABSOLUTE AUTO 6.69 K/mm3 (1.96-9.15); NEUTROPHILS PERCENT AUTO 67 % (41-73); NRBC ABSOLUTE 0.00 K/mm3 (0.00-0.02); NRBC Auto 0.0 /100 WBC (0.0-0.2); Platelet Count 385 K/mm3 (150-400); RDW Coefficient Variation 14.3 % (11.7-14.2); RDW Standard Deviation 49.7 fL (35.1-46.3)
[2025-04-15] MEDS ORDERED: HYDROmorphone HCl/Pf 1MG SYR IV ONE ×2 (04:20→09:25)
[2025-04-15 04:36] LABS: Alanine Aminotransfer (ALT/SGP 37.0 U/L (12-78); Albumin, Blood 3.0 g/dL (3.4-5.0); Albumin/Globulin Ratio 1.0 (0.8-1.8); Anion Gap 8.0 mmol/L (3-11); Aspartate Aminotrans (AST/SGOT 16.0 U/L (12-37); Bilirubin, Total 0.1 mg/dL (0.1-1.0); Blood Urea Nitrogen 10.0 mg/dL (8-24); CO2, Blood 29.0 mmol/L (21-32); Calcium, Blood 8.4 mg/dL (8.5-10.1); Chloride, Blood 107.0 mmol/L (98-108); Creatinine, Blood 0.72 mg/dL (0.60-1.20); Globulin, Blood 3.0 g/dL (2.2-4.0); Glucose, Blood 161.0 mg/dL (70-99); Magnesium, Blood 1.9 mg/dL (1.6-2.4); Potassium, Blood 3.7 mmol/L (3.5-5.5); Sodium, Blood 140.0 mmol/L (136-145); Total Protein, Blood 6.0 g/dL (6.4-8.2)
[2025-04-15 04:57] LABS: Prothrombin Time Results 11.0 Sec (9.7-11.5)
[2025-04-15] MEDS ORDERED: HYDROmorphone HCl/Pf 1MG SYR IV PRN (05:55)
[2025-04-15 08:24] LABS: Source, Urine Clean Catch
[2025-04-15 08:28] LABS: Bilirubin, Urine Neg (Neg); Glucose Qualitative, Urine Neg (Neg); Ketones, Urine Neg (Neg); Leukocyte Esterase, Urine Neg (Neg); Protein, Urine Neg (Neg); Specific Gravity, Urine 1.010 (1.003-1.022); Urobilinogen, Urine NORM (Normal)
[2025-04-15 08:43] LABS: Color, Urine Yellow (P-Yellow)
[2025-04-15 11:30] VITALS: BP 100/70
== END 2025-04-15 11:58 | disposition home or self-care (01) ==
LOC: ER 03:09
PROVIDERS: Student in an Organized Health Care Education/Training Program
DX: K31.1 Adult hypertrophic pyloric stenosis (principal); K86.3 Pseudocyst of pancreas; I10 Essential (primary) hypertension; F43.10 Post-traumatic stress disorder, unspecified; E78.5 Hyperlipidemia, unspecified; F17.220 Nicotine dependence, chewing tobacco, uncomplicated; Z88.8 Allergy status to other drugs, medicaments and biological substances; Z79.899 Other long term (current) drug therapy
CPT/HCPCS: 74177; 80053; 81003; 82947; 83605; 83690; 83735; 85025; 85610; 85730; 86850; 86870; 86900; 86901; 96361; 96374-59; 96375; 96376; 99284-25; J1171; J1790; J2270; J2405; J7120; Q9967